=== PATIENT | male | born 1945 ===

== ENCOUNTER 2019-02-23 05:36 | Emergency (ER) | payer MEDICARE, BC ==
--- NOTE | 2019-02-23 06:52 | C.PDOC ---
History Of Present Illness 74-year-old male presents to the ED for evaluation of right-sided neck pain which began 3 days ago. Patient states he took some Excedrin on the first day of his symptoms, with transient relief. The pain returned with associated muscle spasms to the right side of his neck. Patient reports inability to turn his head to the right due to pain. He last took Excedrin at 2200 today. Patient denies fever, chills, chest pain, shortness of breath, or trauma to the site. Time Seen by Provider: 02/23/19 05:49 Chief Complaint (Nursing): Upper Extremity Problem/Injury History Per: Patient History/Exam Limitations: no limitations Onset/Duration Of Symptoms: Days (3) Current Symptoms Are (Timing): Still Present Quality: "Pain" Additional History Per: Patient Past Medical History Reviewed: Historical Data, Nursing Documentation, Vital Signs Vital Signs: Last Vital Signs Temp 97.6 F 02/23/19 05:46 Pulse 101 H 02/23/19 05:46 Resp 20 02/23/19 05:46 BP 154/69 H 02/23/19 05:46 Pulse Ox 99 02/23/19 05:46 - Medical History PMH: Atrial Fibrillation, HTN Surgical History: Tonsillectomy Family History: States: Unknown Family Hx - Social History Hx Alcohol Use: Yes (wine) Hx Substance Use: No - Immunization History Hx Tetanus Toxoid Vaccination: No Hx Influenza Vaccination: No Hx Pneumococcal Vaccination: No Review Of Systems Constitutional: Negative for: Fever, Chills, Weakness ENT: Negative for: Mouth Swelling Cardiovascular: Negative for: Chest Pain, Palpitations Respiratory: Negative for: Cough, Shortness of Breath Gastrointestinal: Negative for: Nausea, Vomiting Genitourinary: Negative for: Dysuria, Frequency, Hematuria Musculoskeletal: Positive for: Neck Pain (right-sided ). Negative for: Back Pain Skin: Negative for: Rash, Lesions, Jaundice, Bruising Neurological: Negative for: Weakness, Numbness, Dizziness Physical Exam - Physical Exam Appears: Well, Non-toxic, No Acute Distress Skin: Normal Color, Warm, No Rash Head: Atraumatic, Normacephalic Eye(s): bilateral: Normal Inspection, PERRL, EOMI Oral Mucosa: Moist Throat: Normal (no swelling or injection ), No Exudate, Other (airway patent ) Neck: Decreased ROM (secondary to pain ), Supple, Other (tenderness to right neck soft tissue ) Chest: Symmetrical, No Deformity Cardiovascular: Rhythm Regular, No Murmur Respiratory: No Accessory Muscle Use, Other (normal inspiratory effort ) Gastrointestinal/Abdominal: Soft, No Distention Back: Other (ambulating with a steady upright gait ) Extremity: No Normal ROM (limited ROM in right upper extremity secondary to pain ), No Tenderness, Capillary Refill (less than 2 seconds ), No Deformity, No Swelling Pulses: Left Radial: Normal, Right Radial: Normal Neurological/Psych: Oriented x3, Normal Cranial Nerves (grossly intoxicated ), Normal Motor (good strength in right upper extremity ), Normal Sensation ED Course And Treatment O2 Sat by Pulse Oximetry: 99 (on RA ) Pulse Ox Interpretation: Normal Medical Decision Making Medical Decision Making: Progress: Flexeril PO and Toradol IM given. Disposition - Disposition Disposition Time: 07:25 Condition: STABLE Forms: [facility] (Bruneian) - Clinical Impression Clinical Impression: Muscle spasms of neck - PA / [employer] / Resident Statement MD/DO has reviewed & agrees with the documentation as recorded. - Scribe Statement The provider has reviewed the documentation as recorded by the Scribe (Nazanin Michael) All medical record entries made by the Scribe were at my direction and personally dictated by me. I have reviewed the chart and agree that the record accurately reflects my personal performance of the history, physical exam, medical decision making, and the department course for this patient. I have also personally directed, reviewed, and agree with the discharge instructions and disposition. Physician Patient Turnover Patient Signed Over To: Jesika Everett (awaiting c-spine ct)
[2019-02-23] MEDS ORDERED: Lidocaine 5% Patch TD STA (07:41)
[2019-02-23] MEDS ORDERED: Lidocaine 5% Patch TD ONE (08:09)
--- NOTE | 2019-02-23 09:19 | CT ---
CT cervical spine HISTORY: Neck pain. COMPARISON: None available. TECHNIQUE: Multiple contiguous axial images were performed through the cervical spine without the use of intravenous contrast. Subsequently, sagittal and coronal reformatted images were obtained. This CT exam was performed using one or more of the following dose reduction techniques: Automated exposure control, adjustment of the mA and/or kV according to patient size, and/or use of iterative reconstruction technique. Findings: Suboptimal patient positioning in the scanner with right-sided curvature of the spine. Loss of height of the C5 and C6 vertebral bodies. Prominent posterior disc osteophyte complexes at the C5-6 and C6-7 levels. Smaller posterior disc osteophyte complexes at the C2-3, C3-4, and C4-5 levels. Anterior osteophytosis throughout the cervical spine most prominent at the C5-6 and C6-7 levels. Narrowing of the atlantodental interval with sclerosis and bony hypertrophy. Multilevel uncovertebral joint and facet hypertrophy. Prominent mucosal thickening and hypertrophy of the bilateral maxillary sinuses, sphenoid sinus, and ethmoid air cells. Some scattered atelectasis seen in the visualized right lung field. Biapical pleural thickening Atherosclerotic calcification in the aorta. Impression: Severe degenerative changes in the cervical spine centered at the C5-6 and C6-7 levels. If pain persists, consider correlation with MRI.
[2019-02-23 10:52] VITALS: BP 156/91; PULSE 86; RESP 20; TEMP 97.6; O2SAT 99
--- NOTE | 2019-02-26 19:49 | CARD ---
APPROVED REPORT Date of service: 02/23/2019 EKG Measurement Heart [id number] <Conclusion> Atrial fibrillation Cannot rule out Anterior infarct, age undetermined Abnormal ECG
== END 2019-02-23 10:52 | disposition home or self-care (01) ==
LOC: C.ER 05:36
DX: M62.838 Other muscle spasm (principal)
CPT/HCPCS: 72125; 93005; 96372; 99284; J1885; J2270

== ENCOUNTER 2019-02-23 22:03 | Emergency (ER) | payer MEDICARE, BC ==
[2019-02-23 22:16] VITALS: BP 125/85; PULSE 80; RESP 12; TEMP 98.1; O2SAT 97
--- NOTE | 2019-02-23 23:16 | C.PDOC ---
History Of Present Illness 74 year old male seen yesterday for right sided neck pain, had CT done that showed extensive degeneration and arthritic changes, was given valium and naproxen with no relief. Patient still has pain especially when lifting his right arm, states he has a sharp shooting spasm. He also note he was told to follow up with primary but was not referred to a specialist. Time Seen by Provider: 02/23/19 22:40 Chief Complaint (Nursing): Medical Clearance History Per: Patient History/Exam Limitations: no limitations Onset/Duration Of Symptoms: Days (Yesterday) Current Symptoms Are (Timing): Still Present Recent travel outside of the [place]: No Past Medical History Reviewed: Historical Data, Nursing Documentation, Vital Signs Vital Signs: Last Vital Signs Temp 98.1 F 02/23/19 22:08 Pulse 80 02/23/19 22:08 Resp 12 02/23/19 22:08 BP 125/85 02/23/19 22:08 Pulse Ox 97 02/23/19 22:08 - Medical History PMH: Atrial Fibrillation, HTN Surgical History: Tonsillectomy Family History: States: Unknown Family Hx - Social History Hx Alcohol Use: Yes (wine) Hx Substance Use: No - Immunization History Hx Tetanus Toxoid Vaccination: No Hx Influenza Vaccination: No Hx Pneumococcal Vaccination: No Review Of Systems Constitutional: Negative for: Fever, Chills Musculoskeletal: Positive for: Neck Pain Skin: Negative for: Rash Neurological: Negative for: Weakness, Numbness, Dizziness Physical Exam - Physical Exam Appears: Well, Non-toxic, No Acute Distress Skin: Normal Color, Warm, No Rash Head: Atraumatic, Normacephalic Eye(s): bilateral: Normal Inspection Oral Mucosa: Moist Neck: Trachea Midline, No Midline Cervical Tenderness, Paracervical Tenderness, Supple, Other (Right sided neck tenderness when turning head to the right and lifting up right arm) Extremity: Normal ROM (x4, increased pain with shrugging right shoulder) Neurological/Psych: Oriented x3, Normal Speech, Normal Cranial Nerves (Grossly intact), Normal Motor, Normal Sensation ED Course And Treatment O2 Sat by Pulse Oximetry: 97 (Room air) Pulse Ox Interpretation: Normal Medical Decision Making Medical Decision Making: Patient placed in soft collar with some improvement, Rx for pain meds given along with referral for neurosurgery. Disposition Counseled Patient/Family Regarding: Diagnosis, Need For Followup, Rx Given - Disposition Referrals: Alexander Cruz MD [Staff Provider] - Trav Saenz III, MD [Staff Provider] - Disposition: HOME/ ROUTINE Disposition Time: 23:14 Condition: STABLE Prescriptions: Hydrocodone/Acetaminophen [Hydrocodone-Acetamin 5-325 mg] 1 each PO TID PRN #12 tablet PRN Reason: Pain, Severe (8-10) Forms: Gen Discharge Inst Arabic, [facility] (Arabic), Work Excuse Print Language: VIET[place]ESE - Clinical Impression Clinical Impression: Cervical pain (neck) - PA / APPOINTMENT CLERK / Resident Statement MD/DO has reviewed & agrees with the documentation as recorded. - Scribe Statement The provider has reviewed the documentation as recorded by the Scribjaswinder Quezada All medical record entries made by the Rgibjaswinder were at my direction and personally dictated by me. I have reviewed the chart and agree that the record accurately reflects my personal performance of the history, physical exam, medical decision making, and the department course for this patient. I have also personally directed, reviewed, and agree with the discharge instructions and disposition.
== END 2019-02-23 23:20 | disposition home or self-care (01) ==
LOC: C.ER 22:03
DX: M54.2 Cervicalgia (principal)